=== PATIENT | female | born 1980 | race Caucasian/White ===

== ENCOUNTER 2016-07-07 15:54 | Emergency (ER) | payer OTHER ==
--- NOTE | 2016-07-07 20:46 | ED ORDER SUMMARY ---
..... Patient: TABATHA TURCIOS OrderSheet [facility] VisitID: [id number] [address] [place] [address] 36y, F Registration Date/Time: 07/07/2016 ORDER SHEET Weight: 95.2 kg (stated) Allergies: Penicillins, Sulfa Antibiotics, IV Contrast GENERAL ORDERS: Wrist 3 or 4V Right Urgent (19:11 07/07/2016 Pablo A.R.N.P.) (Ack 19:14 Indra [employer] Helper) (19:33 [facility]) MEDICATION ORDERS: IV FLUIDS: ORDER SHEET NOTES: [Electronically signed by Anisha Painting A.R.N.P. (21:11 07/07/2016)] [Electronically signed by Silvestre HuntleyNRisa (06:08 07/08/2016)] [Electronically locked/signed by Silvestre Huntley R.N. (06:08 07/08/2016)]
--- NOTE | 2016-07-07 20:46 | ED ORDER SUMMARY ---
..... 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 (21:11 07/07/2016)] [Electronically signed by Silvestre HuntleyNRisa (06:08 07/08/2016)] [Electronically locked/signed by Silvestre Huntley R.N. (06:08 07/08/2016)]
--- NOTE | 2016-07-07 20:46 | ED NURSING NOTES ---
Clinical Report - Nurses [facility] [address] [place] [address] 07/07/2016 15:58 Patient: TABATHA TURCIOS TRIAGE Triage time 17:06. Acuity: LEVEL 4. Chief Complaint: INJURY TO RIGHT WRIST. Alert. No acute distress. ALEM COMA SCORE: Alem Coma Scale: 15- eyes open spontaneously (4); best verbal response- oriented x 4 (5); best motor response- obeys commands (6). --17:16 Marquita Zazueta R.N. 17:06 07/07/16. BP: 123/83. HR: 74. RR: 18. O2 saturation: 98% on room air. Temp: 99 F. --17:16 Marquita Zazueta R.N. Weight: 95.2 kg stated. Height/Length: 63 inches Per Patient. BMI: 37.2. --17:10 Marquita Zazueta R.N. Medications None. --17:08 Marquita Zazueta R.N. Tylenol with Codeine. --17:12 Marquita Zazueta R.N. TraMADol HCl ER Oral. --17:12 Marquita Zazueta R.N. Medication/allergy information source: the patient. --17:16 Marquita Zazueta R.N. Allergies Penicillins.(Anaphylaxis) Sulfa Antibiotics. --17:08 Marquita Zazueta R.N. IV Contrast. --17:08 Marquita Zazueta R.N. History Arrived by private vehicle. Historian: patient. Unaccompanied. Primary physician (none). This occurred yesterday. Mechanism of injury: (was filling potholess and using a sledge hammer). PAST MEDICAL HX: Uses an intrauterine device. SOCIAL HX: Heavy tobacco smoker- less than 1 pack per day. Occasional alcohol use. No drug use. FALL RISK ASSESSMENT: Fall risk assessment completed. No fall risk identified. FUNCTIONAL ASSESSMENT: Functional assessment: no impairments noted. LEARNING NEEDS ASSESSMENT: The learning needs assessment revealed no barriers. --17:16 Marquita Zazueta R.N. PROBLEMS: Chronic Headache. Migraine Headache. Headache. Immunizations. --17:09 Marquita Zazueta R.N. ADDITIONAL SURGERIES: Dilatation & Curettage. --17:09 Marquita Zazueta R.N. Ankle surgery. --17:10 Marquita Zazueta R.N. Assessment GENERAL / NEURO / PSYCH: Alert. Oriented X 4. Appears in no acute distress. Patient appears calm and cooperative. RESPIRATORY: Respirations not labored. SKIN: Skin is warm and dry. --17:16 Marquita Zazueta R.N. Interventions ID and allergy band on patient. To treatment room. --17:16 Marquita Zazueta R.N. PHYSICAL ASSESSMENT 18:30 07/07/16. EXTREMITIES: Right wrist: tenderness and swelling. --18:30 Sima Merchant R.N. GENERAL / NEURO / PSYCH: ( Pt states she was using her right hand hitting with a sledge hammer). --18:33 Sima Merchant R.N. NURSING PROGRESS NOTES 18:29 07/07/16. Patient identifiers checked. Bed placed in lowest position. Brakes of bed on. Patient ready for evaluation. --18:29 Sima Merchant R.N. Care transferred and report received. ( report received from sima rn). --19:36 Silvestre Huntley R.N. DISPOSITION / DISCHARGE Departure time: 2100. Discharge instructions provided and reviewed with the patient. Reviewed medication(s). Patient verbalized understanding. Written instructions provided in Bengali. The patient was discharged by the nurse practitioner. ( pt ambulated on discharge steady on her feet verbalized understanding of discharge instructions and follow up care. gcs 15). --21:01 Silvestre Huntley R.N. 21:00 07/07/16. BP: 126/78. HR: 86. RR: 18. O2 saturation: 97%. Temp: 98.8 F. Pain level now /10. --21:01 Silvestre Huntley R.N. Locked/Released at 07/08/2016 6:08 by Silvestre Huntley R.N.
--- NOTE | 2016-07-07 20:46 | ED CLINICAL REPORT ---
Clinical Report - Physicians/Mid Levels [facility] [address] [place] [address] 07/07/2016 15:58 [id number] Time Seen: 19:03; initial patient contact, initial documentation, patient care assumed. Arrived- By private vehicle. Historian- patient. HISTORY OF PRESENT ILLNESS Chief Complaint: Injury to the right wrist. The injury happened yesterday. The patient sustained a moderate direct blow (using sledge hammer). Occurred at work. Patient is experiencing moderate pain. Patient denies injury to the head. No other injury. REVIEW OF SYSTEMS The patient has had swelling. No tingling, numbness, weakness or skin laceration. All systems otherwise negative, except as recorded above. PAST HISTORY See nurses notes. PROBLEMS: Chronic Headache. Migraine Headache. Headache. Immunizations. --17:09 Marquita Zazueta R.N. ADDITIONAL SURGERIES: Dilatation & Curettage. --17:09 Marquita Zazueta R.N. Ankle surgery. --17:10 Marquita Zazueta R.N. The patient's dominant hand is the right. SOCIAL HISTORY Light tobacco smoker. Occasional alcohol use. No drug use. No recent travel. Is a local resident. FAMILY HISTORY No significant family medical history. ADDITIONAL NOTES The nursing notes have been reviewed with agreement regarding the chief complaint, HPI, ROS, PMH and patient medications and allergies. PHYSICAL EXAM Vital Signs: 07/07/2016 17:06 BP: 123/83. HR: 74. RR: 18. O2 saturation: 98%. Temp: 99 F. Have been reviewed as normal and appear to be correct. Appearance: Alert. Oriented X3. No acute distress. Head: Head atraumatic. Eyes: Pupils equal, round and reactive to light. Eyes normal inspection. Respiratory: No respiratory distress. Skin: Skin warm and dry. Skin intact. Extremities: Wrist injury present. Right wrist: mild tenderness and swelling located in the area of the ulnar styloid. Neurovascular intact distally. No erythema, laceration, abrasion, puncture wound or foreign body. No ecchymosis or deformity. No joint effusion or limitation in ROM. No hand injury. Hand and wrist exam otherwise negative. Extremities otherwise negative. Neuro, Vascular and Tendons: Vascular status intact. Sensation intact. Motor intact. Tendon function intact. Neuro: Oriented X 3. No motor deficit. No sensory deficit. Note: isolated injury to wrist. LABS, X-RAYS, AND EKG X-Rays: X-rays are normal and reveal no acute disease (and reviewed by dr weir). Right wrist negative. The X-rays were independently viewed by me. PROGRESS AND PROCEDURES Course of Care: 20:48 07/07/16. L&I paperwork completed. Patient counseled in person regarding the patient's stable condition, test results and diagnosis. 20:46. Differential Diagnosis: Other possible considerations: fx vs sprain. Above considerations are based on history, physical exam and X-Ray data. Differential diagnosis was discussed with patient. Disposition: Discharged home in good and unchanged condition (20:46). Condition: good and stable. CLINICAL IMPRESSION Acute inflammatory tendonitis in the right wrist. INSTRUCTIONS Limit use of your hand. Do not work tomorrow (light use of hand/wrist x1 week). Warnings: GENERAL WARNINGS: Return or contact your physician immediately if your condition worsens or changes unexpectedly, if not improving as expected, or if other problems arise. Specifically return if problem worsens. Prescription Medications: Naproxen 500 mg tablets: take 1 orally every 12 hours as needed for pain. Dispense twenty (20). No refills. Follow-up: Follow up with your doctor in about weeks as needed. Call for an appointment. Summary of care provided to patient. Understanding of the discharge instructions verbalized by patient. (Electronically signed by Anisha Painting A.R.N.P. 07/07/2016 21:11)
--- NOTE | 2016-07-07 21:29 | DIAGNOSTIC IMAGING REPORT ---
PROCEDURE: XR WRIST MIN 3 VIEWS - RIGHT INDICATION: TRAUMA/INJURY TECHNIQUE: Five views. COMPARISON: None. FINDINGS: Osseous structures and joint spaces are normal. If an occult scaphoid fracture is suspected clinically, follow-up examination in 10-14 days may be of assistance. IMPRESSION: 1. Normal right wrist.
--- NOTE | 2016-07-08 06:08 | ED MAR SUMMARY ---
..... Medication Administration Record [facility] [address] [place], [place] [id number] Patient: TABATHA TURCIOS Visit ID: [id number] 36y, F Weight: 95.2 kg Height/Length: 63 in BMI: 37.2 ALLERGIES: Penicillins, Sulfa Antibiotics, IV Contrast
--- NOTE | 2016-07-08 06:08 | ED DISCHARGE INSTRUCTIONS ---
Patient: TABATHA TURCIOS General Instructions [facility] VisitID: [id number] [place] [address] 36y, F Registration Date/Time: 07/07/2016 Acute inflammatory tendonitis in the right wrist. INSTRUCTIONS Limit use of your hand. Do not work tomorrow (light use of hand/wrist x1 week). Warnings: GENERAL WARNINGS: Return or contact your physician immediately if your condition worsens or changes unexpectedly, if not improving as expected, or if other problems arise. Specifically return if problem worsens. Prescription Medications: Naproxen 500 mg tablets: take 1 orally every 12 hours as needed for pain. Dispense twenty (20). No refills. Follow-up: Follow up with your doctor in about weeks as needed. Call for an appointment. Summary of care provided to patient. Understanding of the discharge instructions verbalized by patient. ADDITIONAL INFORMATION Tendonitis A tendon is the thick fibrous cord that joins muscle to bone and causes joints to move. Tendonitis is inflammation of the tendon which may be due to overuse, injury or infection. This usually involves the shoulders, forearm, wrist, hands and foot. Symptoms include local pain, swelling and tenderness to the touch. Movement of the involved joint increases the pain. Tendonitis requires about 4 to 6 weeks to heal. It is treated by preventing motion of the tendon with a splint or brace and use of anti-inflammatory medicine. Home Care: Apply an ice pack (ice cubes in a plastic bag, wrapped in a towel) over the injured area for 20 minutes every 1-2 hours the first day for pain relief. Continue this 3-4 times a day until the pain and swelling goes away. Rest the inflamed joint and protect it from movement. You may use ibuprofen (Motrin, Advil) or naproxen (Aleve, Naprosyn) to treat pain and inflammation, unless another medicine was prescribed. If you can't take these medicines, acetaminophen (Tylenol) may help with the pain, but does not treat inflammation. [NOTE : If you have chronic liver or kidney disease or ever had a stomach ulcer or GI bleeding, talk with your doctor before using these medicines.] As your symptoms improve, begin gradual motion at the involved joint. Follow Up With Your Doctor If Not Improving After The First Five Days Of Treatment. Get Prompt Medical Attention If Any Of The Following Occur: Redness over the painful area Increasing pain or swelling at the joint Fever of 100.4F (38C) or higher, or as directed by your healthcare provider Naproxen Sodium Oral tablet What is this medicine? NAPROXEN (na PROX en) is a non-steroidal anti-inflammatory drug (NSAID). It is used to reduce swelling and to treat pain. This medicine may be used for dental pain, headache, or painful monthly periods. It is also used for painful joint and muscular problems such as arthritis, tendinitis, bursitis, and gout. How should I use this medicine? Take this medicine by mouth with a glass of water. Follow the directions on the prescription label. Take it with food if your stomach gets upset. Try to not lie down for at least 10 minutes after you take it. Take your medicine at regular intervals. Do not take your medicine more often than directed. Long-term, continuous use may increase the risk of heart attack or stroke. A special MedGuide will be given to you by the pharmacist with each prescription and refill. Be sure to read this information carefully each time. Talk to your secondary school special ed teacher regarding the use of this medicine in children. Special care may be needed. What side effects may I notice from receiving this medicine? Side effects that you should report to your doctor or health director of managed care as soon as possible: black or bloody stools, blood in the urine or vomit blurred vision chest pain difficulty breathing or wheezing nausea or vomiting severe stomach pain skin rash, skin redness, blistering or peeling skin, hives, or itching slurred speech or weakness on one side of the body swelling of eyelids, throat, lips unexplained weight gain or swelling unusually weak or tired yellowing of eyes or skin Side effects that usually do not require medical attention (report to your doctor or health director of managed care if they continue or are bothersome): constipation headache heartburn What may interact with this medicine? alcohol aspirin cidofovir diuretics lithium methotrexate other drugs for inflammation like ketorolac or prednisone pemetrexed probenecid warfarin What if I miss a dose? If you miss a dose, take it as soon as you can. If it is almost time for your next dose, take only that dose. Do not take double or extra doses. Where should I keep my medicine? Keep out of the reach of children. Store at room temperature between 15 and 30 degrees C (59 and 86 degrees F). Keep container tightly closed. Throw away any unused medicine after the expiration date. What should I tell my health care provider before I take this medicine? They need to know if you have any of these conditions: asthma cigarette smoker drink more than 3 alcohol containing drinks a day heart disease or circulation problems such as heart failure or leg edema (fluid retention) high blood pressure kidney disease liver disease stomach bleeding or ulcers an unusual or allergic reaction to naproxen, aspirin, other NSAIDs, other medicines, foods, dyes, or preservatives or trying to get breast-feeding What should I watch for while using this medicine? Tell your doctor or health director of managed care if your pain does not get better. Talk to your doctor before taking another medicine for pain. Do not treat yourself. This medicine does not prevent heart attack or stroke. In fact, this medicine may increase the chance of a heart attack or stroke. The chance may increase with longer use of this medicine and in people who have heart disease. If you take aspirin to prevent heart attack or stroke, talk with your doctor or health director of managed care. Do not take other medicines that contain aspirin, ibuprofen, or naproxen with this medicine. Side effects such as stomach upset, nausea, or ulcers may be more likely to occur. Many medicines available without a prescription should not be taken with this medicine. This medicine can cause ulcers and bleeding in the stomach and intestines at any time during treatment. Do not smoke cigarettes or drink alcohol. These increase irritation to your stomach and can make it more susceptible to damage from this medicine. Ulcers and bleeding can happen without warning symptoms and can cause . You may get drowsy or dizzy. Do not drive, use machinery, or do anything that needs mental alertness until you know how this medicine affects you. Do not stand or sit up quickly, especially if you are an older patient. This reduces the risk of dizzy or fainting spells. This medicine can cause you to bleed more easily. Try to avoid damage to your teeth and gums when you brush or floss your teeth. You have been given the following additional information: Tendonitis Naproxen Sodium Oral tablet Limit use of your hand. Do not work tomorrow (light use of hand/wrist x1 week). (Electronically signed by Ainsha Painting A.R.N.P. 07/07/2016 21:11)
--- NOTE | 2016-07-08 06:08 | ED MAR SUMMARY ---
..... Medication Administration Record [facility] [address] [place], [place] [id number] Patient: TABATHA TURCIOS Visit ID: [id number] 36y, F Weight: 95.2 kg Height/Length: 63 in BMI: 37.2 ALLERGIES: Penicillins, Sulfa Antibiotics, IV Contrast
--- NOTE | 2016-07-08 06:08 | ED DISCHARGE INSTRUCTIONS ---
Patient: TABATHA TURCIOS General Instructions [facility] VisitID: [id number] [place] [address] 36y, F Registration Date/Time: 07/07/2016 Acute inflammatory tendonitis in the right wrist. INSTRUCTIONS Limit use of your hand. Do not work tomorrow (light use of hand/wrist x1 week). Warnings: GENERAL WARNINGS: Return or contact your physician immediately if your condition worsens or changes unexpectedly, if not improving as expected, or if other problems arise. Specifically return if problem worsens. Prescription Medications: Naproxen 500 mg tablets: take 1 orally every 12 hours as needed for pain. Dispense twenty (20). No refills. Follow-up: Follow up with your doctor in about weeks as needed. Call for an appointment. Summary of care provided to patient. Understanding of the discharge instructions verbalized by patient. ADDITIONAL INFORMATION Tendonitis A tendon is the thick fibrous cord that joins muscle to bone and causes joints to move. Tendonitis is inflammation of the tendon which may be due to overuse, injury or infection. This usually involves the shoulders, forearm, wrist, hands and foot. Symptoms include local pain, swelling and tenderness to the touch. Movement of the involved joint increases the pain. Tendonitis requires about 4 to 6 weeks to heal. It is treated by preventing motion of the tendon with a splint or brace and use of anti-inflammatory medicine. Home Care: Apply an ice pack (ice cubes in a plastic bag, wrapped in a towel) over the injured area for 20 minutes every 1-2 hours the first day for pain relief. Continue this 3-4 times a day until the pain and swelling goes away. Rest the inflamed joint and protect it from movement. You may use ibuprofen (Motrin, Advil) or naproxen (Aleve, Naprosyn) to treat pain and inflammation, unless another medicine was prescribed. If you can't take these medicines, acetaminophen (Tylenol) may help with the pain, but does not treat inflammation. [NOTE : If you have chronic liver or kidney disease or ever had a stomach ulcer or GI bleeding, talk with your doctor before using these medicines.] As your symptoms improve, begin gradual motion at the involved joint. Follow Up With Your Doctor If Not Improving After The First Five Days Of Treatment. Get Prompt Medical Attention If Any Of The Following Occur: Redness over the painful area Increasing pain or swelling at the joint Fever of 100.4F (38C) or higher, or as directed by your healthcare provider Naproxen Sodium Oral tablet What is this medicine? NAPROXEN (na PROX en) is a non-steroidal anti-inflammatory drug (NSAID). It is used to reduce swelling and to treat pain. This medicine may be used for dental pain, headache, or painful monthly periods. It is also used for painful joint and muscular problems such as arthritis, tendinitis, bursitis, and gout. How should I use this medicine? Take this medicine by mouth with a glass of water. Follow the directions on the prescription label. Take it with food if your stomach gets upset. Try to not lie down for at least 10 minutes after you take it. Take your medicine at regular intervals. Do not take your medicine more often than directed. Long-term, continuous use may increase the risk of heart attack or stroke. A special MedGuide will be given to you by the pharmacist with each prescription and refill. Be sure to read this information carefully each time. Talk to your science manager regarding the use of this medicine in children. Special care may be needed. What side effects may I notice from receiving this medicine? Side effects that you should report to your doctor or health patient care provider as soon as possible: black or bloody stools, blood in the urine or vomit blurred vision chest pain difficulty breathing or wheezing nausea or vomiting severe stomach pain skin rash, skin redness, blistering or peeling skin, hives, or itching slurred speech or weakness on one side of the body swelling of eyelids, throat, lips unexplained weight gain or swelling unusually weak or tired yellowing of eyes or skin Side effects that usually do not require medical attention (report to your doctor or health patient care provider if they continue or are bothersome): constipation headache heartburn What may interact with this medicine? alcohol aspirin cidofovir diuretics lithium methotrexate other drugs for inflammation like ketorolac or prednisone pemetrexed probenecid warfarin What if I miss a dose? If you miss a dose, take it as soon as you can. If it is almost time for your next dose, take only that dose. Do not take double or extra doses. Where should I keep my medicine? Keep out of the reach of children. Store at room temperature between 15 and 30 degrees C (59 and 86 degrees F). Keep container tightly closed. Throw away any unused medicine after the expiration date. What should I tell my health care provider before I take this medicine? They need to know if you have any of these conditions: asthma cigarette smoker drink more than 3 alcohol containing drinks a day heart disease or circulation problems such as heart failure or leg edema (fluid retention) high blood pressure kidney disease liver disease stomach bleeding or ulcers an unusual or allergic reaction to naproxen, aspirin, other NSAIDs, other medicines, foods, dyes, or preservatives or trying to get breast-feeding What should I watch for while using this medicine? Tell your doctor or health patient care provider if your pain does not get better. Talk to your doctor before taking another medicine for pain. Do not treat yourself. This medicine does not prevent heart attack or stroke. In fact, this medicine may increase the chance of a heart attack or stroke. The chance may increase with longer use of this medicine and in people who have heart disease. If you take aspirin to prevent heart attack or stroke, talk with your doctor or health patient care provider. Do not take other medicines that contain aspirin, ibuprofen, or naproxen with this medicine. Side effects such as stomach upset, nausea, or ulcers may be more likely to occur. Many medicines available without a prescription should not be taken with this medicine. This medicine can cause ulcers and bleeding in the stomach and intestines at any time during treatment. Do not smoke cigarettes or drink alcohol. These increase irritation to your stomach and can make it more susceptible to damage from this medicine. Ulcers and bleeding can happen without warning symptoms and can cause . You may get drowsy or dizzy. Do not drive, use machinery, or do anything that needs mental alertness until you know how this medicine affects you. Do not stand or sit up quickly, especially if you are an older patient. This reduces the risk of dizzy or fainting spells. This medicine can cause you to bleed more easily. Try to avoid damage to your teeth and gums when you brush or floss your teeth. You have been given the following additional information: Tendonitis Naproxen Sodium Oral tablet Limit use of your hand. Do not work tomorrow (light use of hand/wrist x1 week). (Electronically signed by Anisha Painting A.R.N.P. 07/07/2016 21:11)
--- NOTE | 2016-07-08 06:08 | ED MED RECONCILIATION SUMMARY ---
Patient: TABATHA TURCIOS Medication Reconciliation Report [facility] VisitID: [id number] [address] [place] [address] 36y, F Registration Date/Time: 07/07/2016 Weight: 95.2 kg Height/Length: 63 in. BMI: 37.2 ALLERGIES: IV Contrast, Penicillins, Sulfa Antibiotics The patient's Home Medications are listed below: THE FOLLOWING MEDICATIONS NEED TO BE RECONCILED: TraMADol HCl ER Oral Tylenol with Codeine The source(s) of the original Home Medication information: patient The following Medications were given to the patient in the Emergency Department: None. The following Medications were prescribed to the patient: Naproxen 500 mg tablets: take 1 orally every 12 hours as needed for pain. Dispense twenty (20). No refills. -- Anisha Painting A.R.N.P.
--- NOTE | 2016-07-08 06:08 | ED MED RECONCILIATION SUMMARY ---
Patient: TABATHA TURCIOS Medication Reconciliation Report [facility] VisitID: [id number] [address] [place] [address] 36y, F Registration Date/Time: 07/07/2016 Weight: 95.2 kg Height/Length: 63 in. BMI: 37.2 ALLERGIES: IV Contrast, Penicillins, Sulfa Antibiotics The patient's Home Medications are listed below: THE FOLLOWING MEDICATIONS NEED TO BE RECONCILED: TraMADol HCl ER Oral Tylenol with Codeine The source(s) of the original Home Medication information: patient The following Medications were given to the patient in the Emergency Department: None. The following Medications were prescribed to the patient: Naproxen 500 mg tablets: take 1 orally every 12 hours as needed for pain. Dispense twenty (20). No refills. -- Anisha Painting A.R.N.P.
== END 2016-07-07 21:00 | disposition home or self-care (01) ==
LOC: ED SRH 15:54
DX: M77.8 Other enthesopathies, not elsewhere classified (principal); W27.8XXA Contact with other nonpowered hand tool, initial encounter; Y93.89 Activity, other specified; Y92.69 Other specified industrial and construction area as the place of occurrence of the external cause; Y99.8 Other external cause status; Z88.2 Allergy status to sulfonamides; G43.909 Migraine, unspecified, not intractable, without status migrainosus; Z79.891 Long term (current) use of opiate analgesic; F17.290 Nicotine dependence, other tobacco product, uncomplicated; Z88.0 Allergy status to penicillin